=== PATIENT | female | born 1970 | race Two or more races ===

== ENCOUNTER 2023-07-29 19:08 | Emergency (ER) | payer OTHER ==
[~2023-07-29] VITALS: Ht 152.4 cm; Wt 72.6 kg
[2023-07-30] MEDS ORDERED: KETO10TA2 PO (02:27)
[2023-07-30] MEDS ORDERED: NORFLEX100MG PO (02:27)
== END 2023-07-30 03:02 | disposition home or self-care (01) ==
LOC: ER 19:09
DX: M25.531 Pain in right wrist (principal)